=== PATIENT | female | born 1965 | race Two or more races ===

== ENCOUNTER 2020-02-14 23:35 | Inpatient (IN) | payer OTHER ==
[~2020-02-14] VITALS: Ht 157.5 cm; Wt 77.1 kg
--- NOTE | 2020-02-14 23:38 | NUR ---
COVID SWAB SENT TO LAB
[2020-02-14 23:52] LABS: BASOPHILS # (AUTO) 0.1 /CMM (0.0-0.2); HEMATOCRIT 44 % (33-45); HEMOGLOBIN 14.7 g/dL (11.5-14.8); LYMPHOCYTES # (AUTO) 3.4 /CMM (0.8-4.8); LYMPHOCYTES % (AUTO) 44.5 % (20.0-44.0); MEAN CORPUSCULAR HGB CONC 34 g/dl (31.0-36.0); MEAN CORPUSCULAR VOLUME 92 fL (82-100); MONOCYTES # (AUTO) 0.5 /CMM (0.1-1.30); NEUTROPHILS # (AUTO) 3.5 /CMM (1.8-8.9); NEUTROPHILS % (AUTO) 46.5 % (43.0-81.0); PLATELET COUNT (AUTO) 251 /CMM (150-450); RED BLOOD CELL COUNT(AUTO) 4.75 MIL/uL (4.0-5.2); WHITE BLOOD COUNT (AUTO) 7.6 K/uL (4.3-11.0)
--- NOTE | 2020-02-14 23:55 | NUR ---
URINE SENT TO LAB
--- NOTE | 2020-02-14 23:57 | NUR ---
PT AAOX4. [place] FROM [facility] ADMIT; ON 5150 FOR SI. PLACED IN BED 12 ON MONIOTOR AND PULSE OX. SITTER AT BEDSIDE. PT CALM.
[2020-02-15] LABS: CALCIUM, SERUM 9.2 mg/dL (8.5-10.1); CARBON DIOXIDE 30 mmol/L (21-32); CHLORIDE 103 mmol/L (98-107); CREATININE 1.1 mg/dL (0.6-1.3); GLUCOSE 103 mg/dL (74-106); POTASSIUM 3.6 mmol/L (3.5-5.1); SODIUM SERUM 140 mmol/L (136-145); UREA NITROGEN, BLOOD 11 mg/dL (7-18)
[2020-02-15 00:01] LABS: APPEARANCE,URINE Clear (CLEAR); BILIRUBIN,URINE Negative (NEGATIVE); BLOOD, URINE Negative Ery/uL (NEGATIVE); COLOR,URINE Yellow (YELLOW); KETONES,URINE Trace (NEGATIVE); LEUKOCYTE ESTERASE ,URINE Negative (NEGATIVE); NITRITE, URINE Negative (NEGATIVE); PH,URINE 5.5 (5.0-8.0); PROTEIN,URINE Negative (NEGATIVE); UGLUCOSE Negative (NEGATIVE)
[2020-02-15 00:05] LABS: ALANINE AMINOTRANSFERASE 23 U/L (12-78); ALBUMIN 4.1 g/dL (3.4-5.0); ALKALINE PHOSPHATASE 112 U/L (46-116); ASPARTATE AMINOTRANSFERASE 26 U/L (15-37); BILIRUBIN,DIRECT 0.1 mg/dL (0.0-0.2); BILIRUBIN,TOTAL 0.4 mg/dL (0.2-1.0); TOTAL PROTEIN, SERUM 7.4 g/dL (6.4-8.2)
[2020-02-15 00:10] LABS: ACETAMINOPHEN < 2 ug/ml (10-30); ALCOHOL, BLOOD < 3 mg/dL (0-0)
[2020-02-15 00:12] LABS: BACTERIA,URINE Rare /HPF (None Seen); RBC,URINE NONE SEEN /HPF (0-2); SQUAMOUS EPITHELIAL CELL,UR Few /HPF (None Seen); WBC,URINE NONE SEEN /HPF (0-3)
--- NOTE | 2020-02-15 01:00 | NUR ---
REPORT GIVEN TO DAVID AT [facility]
--- NOTE | 2020-02-15 01:10 | NUR ---
PT WAS TRANSFERRED TO [facility] IN STABLE CONDITION.
[2020-02-15 01:15] VITALS: BP 110/62
--- NOTE | 2020-02-15 01:20 | NUR ---
[facility] FIXTURE MAKER NOTES: ADMITTED A 55/FEMALE FROM [facility] TO [facility] TO [facility]IT, ON 5150 HOLD FOR DANGER TO SELF. PER HOLD, PATIENT IS A & O X 3, CALM, COOPERATIVE. PT. REPORTS INCREASED SUICIDAL IDEATION DUE TO LACK OF SLEEP. PT. OVERDOSED ON HER ATIVAN 12-15 PILLS ON 02/11/2020. PT. STATED," I CAN'T SAY IF I CAN KEEP MYSELF SAFE IF I GO HOME TODAY. I DON'T KNOW WHAT TO TELL YOU." PT. HAS LIMITED SUPPORT SYSTEM & STATED," ALL I DO IS STAY IN MY ROOM, ALL I DO IS BREATH, THAT'S IT." PATIENT IS UNABLE TO CONTRACT FOR HER SAFETY AT THIS TIME. PATIENT WILL BE UNDER THE CARE OF DR. JOHNSON AND DR. MORA FOR PSYCH AND MEDICAL DOCTORS RESPECTIVELY. PATIENT WAS BROUGHT INTO THE UNIT VIA GURNEY. UPON FACE TO FACE ASSESSMENT, PATIENT IS A & O X 3, CALM, COOPERATIVE, QUIET, DEPRESSED, DISORGANIZED, DISHEVELED, SAD. ABLE TO MAKE HER NEEDS KNOWN. DURING INTERVIEW, PATIENT STATED," I AM FEELING SAD," BUT REFUSED TO VERBALIZE THE REASON. DENIED SI/HI/AVH AT THIS TIME & DENIED OF HAVING ANY PLAN OR THOUGHTS TO HURT/KILL HERSELF. NO BEHAVIOR EPISODE NOTED. APPEARS UNKEMPT, PATIENT'S BELONGINGS AND CONTRABAND WERE CHECKED. SKIN AND BODY ASSESSMENT CHECKED, PHOTOS TAKEN AND PLACED IN THE CHART. AMBULATORY, STAEDY, CONTINENT OF B & BM, Q15 MIN CHECKS STARTED. CARE PLAN INITIATED. PROVIDED PATIENT WITH PATIENT'S RIGHTS HANDBOOK AND THE GUIDE TO PRESCRIPTION MEDICATIONS. MEDS ENTERED FOR MED RECON. PATIENT THEN CHANGED TO CLEAN GOWN. VITAL SIGNS TAKEN AND RECORDED. ENVIRONMENTAL SAFETY CHECKS DONE. SAFETY MEASURES IN PLACE. BED IN LOW LOCKED POSITION. WILL CONTINUE TO MONITOR Q 15 MIN FOR SAFETY, MOOD & BEHAVIOR.
[2020-02-15] MEDS ORDERED: ACETAMINOPHEN 325 MG TABLET PO PRN (01:30)
[2020-02-15] MEDS ORDERED: MAGNESIUM HYDROXIDE 30 ML UDC PO PRN (01:30)
[2020-02-15] MEDS ORDERED: BLOOD SUGAR DIAGNOSTIC 1 EACH STRIP IN ONE (01:30)
[2020-02-15] MEDS ORDERED: MAG HYDROX/AL HYDROX/SIMETH 30 ML UDC PO PRN (01:30)
[2020-02-15] MEDS ORDERED: FLUO10CA26 PO (01:49)
[2020-02-15] MEDS ORDERED: ESCI20TA PO (01:49)
[2020-02-15] MEDS ORDERED: BUPR150T5 PO (01:49)
[2020-02-15] MEDS ORDERED: LORA-259 PO (01:49)
[2020-02-15] MEDS ORDERED: TEMAZEPAM 7.5 MG CAPSULE PO PRN (02:30)
--- NOTE | 2020-02-15 02:36 | NUR ---
[facility] RN NOTE: INSOMNIA PATIENT VERBALIZED THAT SHE IS UNABLE TO SLEEP & REQUESTED TO GET SLEEPING MEDICINE. PRN RESTORIL 7.5 MG 1 CAP PO GIVEN. WILL CONTINUE TO MONITOR CLOSELY FOR ANY CHANGES.
--- NOTE | 2020-02-15 03:47 | NUR ---
[facility] RN NOTE PATIENT IS SLEEPING COMFORTABLY AT THIS TIME. NO BEHAVIOR EPISODES NOTED.
--- NOTE | 2020-02-15 06:43 | NUR ---
[facility] RN NOTE CALLED JUAN (DAUGHTER) AT [phone] & INFORMED HER ABOUT NAOMI ARGUELLES'S ADMISSION AT [facility] UNIT & DAUGHTER IS ZEKE.
[2020-02-15 08:00] VITALS: BP 109/56
--- NOTE | 2020-02-15 14:05 | NUR ---
Family Contact: SW called the pts daughter, Lia ([phone]), and discussed the pts treatment and initial discharge plan. Pts daughter stated that she would want the pt to live with her post discharge.
--- NOTE | 2020-02-15 14:27 | NUR ---
Initial Discharge Plan: Pt currently resides with her family located at [address] [place] [address]; ([phone]). Per pt, she would like to go home but not until she is stable. SW will work with the pt and the MD regarding appropriate discharge planning. SW will form a safe and proper discharge.
--- NOTE | 2020-02-15 14:51 | NUR ---
Substance Abuse Intervention: SW conducted a substance abuse intervention with the pt due to her overdose on Ativan.
--- NOTE | 2020-02-15 14:57 | NUR ---
Family Contact: JULIAN called the pts daughter, Lia ([phone]), and informed her that the pt agreed to be placed in her daughter's home after being discharged from the hospital. JULIAN stated that she will keep her updated.
[2020-02-15 16:00] VITALS: BP 100/61
[2020-02-15] MEDS: FLUOXETINE HCL 20 MG CAPSULE PO SCH (18:25)
[2020-02-15 20:18] VITALS: BP 102/55
[2020-02-15 23:31] VITALS: BP 111/60
[2020-02-15] MEDS: LORAZEPAM 0.5 MG TABLET PO PRN (23:33)
--- NOTE | 2020-02-15 23:34 | NUR ---
[facility] RN NOTES: ANXIOUS PT C/O OF FEELING ANXIOUS. PA REQUESTED ATIVAN. VITALS TAKEN WNL. NO SOB. NO RESP DISTRESS. OFFERED ATIVAN 0.5MG PO PRN ORDERED. PT AGREED AND TOLERATED MEDICATION WELL. CONTINUE TO MONITOR.
[2020-02-16 08:00] VITALS: BP 100/52
[2020-02-16 08:04] LABS: CHOLESTEROL 190 mg/dL (<200); HDL CHOLESTEROL 59 mg/dL (40-60); LDL 105 mg/dL (0-99); TRIGLYCERIDES 153 mg/dL (30-150)
[2020-02-16] MEDS: FLUOXETINE HCL 20 MG CAPSULE PO SCH (08:14)
[2020-02-16] MEDS: BUPROPION XL 150 MG TAB.ER.24 PO SCH (08:14)
[2020-02-16] MEDS: ASPIRIN/ACETAMINOPHEN/CAFFEINE 1 EACH TABLET PO PRN (12:10)
--- NOTE | 2020-02-16 14:58 | NUR ---
Pt. signed the voluntary admission.
[2020-02-16 16:00] VITALS: BP 102/58
[2020-02-16 20:18] VITALS: BP 121/65
[2020-02-16] MEDS: LORAZEPAM 0.5 MG TABLET PO PRN (22:50)
--- NOTE | 2020-02-16 22:50 | NUR ---
[facility]-RN NOTE: ANXIETY PATIENT C/O FEELING ANXIOUS. ADMINISTERED ATIVAN 0.5MG PO ORDERED. WILL CONTINUE TO MONITOR FOR PATIENT'S SAFETY.
[2020-02-17 08:00] VITALS: BP 103/70
[2020-02-17] MEDS: FLUOXETINE HCL 20 MG CAPSULE PO SCH (08:37)
[2020-02-17] MEDS: BUPROPION XL 150 MG TAB.ER.24 PO SCH (08:37)
[2020-02-17 16:00] VITALS: BP 123/79
[2020-02-17 20:08] VITALS: BP 117/52
[2020-02-17] MEDS: LORAZEPAM 0.5 MG TABLET PO PRN (21:37)
[2020-02-17 22:00] VITALS: BP 115/65
--- NOTE | 2020-02-18 06:50 | NUR ---
[facility] RN NOTES: PT. RESTING HER ROOM, CALM NOTED AT THIS TIME . NO S/S OF DISTRESS NOTED . NO CHANGE OF CONDITION NOTED, ALL CARE NEEDS MET ANTICIPATED. WILL CONTINUE TO MONITOR FOR SAFETY BEHAVIOR, AND ENDORSE TO AM SHIFT FOR CONTINUITY OF CARE.
[2020-02-18 08:00] VITALS: BP 103/64
[2020-02-18] MEDS: ASPIRIN/ACETAMINOPHEN/CAFFEINE 1 EACH TABLET PO PRN (08:31)
--- NOTE | 2020-02-18 08:31 | NUR ---
given excedrin for headache.
[2020-02-18] MEDS: FLUOXETINE HCL 20 MG CAPSULE PO SCH (09:18)
[2020-02-18] MEDS: BUPROPION XL 150 MG TAB.ER.24 PO SCH (09:18)
--- NOTE | 2020-02-18 12:30 | NUR ---
talking about being discharged today.here on volunteer basis.instructed to talk with smelter charger
[2020-02-18 16:00] VITALS: BP 122/57
[2020-02-18 20:28] VITALS: BP 125/72
[2020-02-18] MEDS: LORAZEPAM 0.5 MG TABLET PO PRN (21:00)
--- NOTE | 2020-02-18 21:00 | NUR ---
RN NOTES: ANXIETY PATIENT C/O FEELING ANXIOUS. ADMINISTERED ATIVAN 0.5MG PO ORDERED AND PER PT. REQUEST. WILL CONTINUE TO MONITOR FOR PATIENT'S SAFETY AND BEHAVIOR.
--- NOTE | 2020-02-19 07:01 | NUR ---
[facility] RN NOTES: PT. RESTING HER ROOM, CALM NOTED AT THIS TIME . NO S/S OF DISTRESS NOTED . NO CHANGE OF CONDITION NOTED, NO BEHAVIOR PROBLEMS NOTED, ALL CARE NEEDS MET ANTICIPATED. WILL CONTINUE TO MONITOR FOR SAFETY BEHAVIOR, AND ENDORSE TO AM SHIFT FOR CONTINUITY OF CARE.
[2020-02-19 08:00] VITALS: BP 110/65
[2020-02-19] MEDS: BUPROPION XL 150 MG TAB.ER.24 PO SCH (08:07)
[2020-02-19] MEDS: FLUOXETINE HCL 20 MG CAPSULE PO SCH (08:07)
[2020-02-19 16:00] VITALS: BP 105/60
--- NOTE | 2020-02-19 17:47 | NUR ---
RN-CO: Guero refused MOM for constipation. She said I will just wait until I got home. "That is my normal."
[2020-02-19 19:43] VITALS: BP 121/71
[2020-02-19] MEDS: LORAZEPAM 0.5 MG TABLET PO PRN (20:33)
--- NOTE | 2020-02-19 20:34 | NUR ---
RN NOTES: ANXIETY PATIENT C/O FEELING ANXIOUS. ADMINISTERED ATIVAN 0.5MG PO ORDERED AND PER PT. REQUEST. WILL CONTINUE TO MONITOR FOR PATIENT'S SAFETY AND BEHAVIOR.
--- NOTE | 2020-02-20 07:24 | NUR ---
[facility] RN NOTES PATIENT IN THE ROOM, AWAKE, HAVING BREAKFAST. PATIENT IS CALM AT THIS TIME AND PLEASANT; NO S/S OF DISTRESS NOTED. WILL CONTINUE TO MONITOR FOR SAFETY BEHAVIOR.
[2020-02-20 08:00] VITALS: BP 105/74
[2020-02-20] MEDS: FLUOXETINE HCL 20 MG CAPSULE PO SCH (08:15)
[2020-02-20] MEDS: BUPROPION XL 150 MG TAB.ER.24 PO SCH (08:18)
--- NOTE | 2020-02-20 11:02 | NUR ---
SW Family Contact: This magnetic tape typewriter operator spoke with patients daughter Lia ([phone]) will sisal picker patient at 3PM. This magnetic tape typewriter operator discussed patient's treatment plan as well.
--- NOTE | 2020-02-20 11:48 | NUR ---
Coordination of Care: Patient will follow up with (Manager Cath Lab) Dr. Vallejo located at [address] [place] [address]; ([phone]) and spoke with Beth officer of the day who scheduled for 02/22 at 2:30PM and faxed [phone]) clinicals. Patient will follow up with (Psychiatrist) Dr. Darrell Adams located at [facility] located at [address] [place] [address]; ([phone]) on February 21 at 10:30AM and apt was made by Allison delivery mgr.
--- NOTE | 2020-02-20 11:49 | NUR ---
SW Discharge Note: Patient will be discharged back home at [address] [facility], [address]; ([phone]). Patients daughter Lia ([phone]) will picker machine operator patient at 3PM. Patients daughter Lia ([phone]) is aware and agreeable. Upon discharge, patient appears to be calm, cooperative and happy to be going home. Patient denies suicidal and homicidal ideation. Patient denies auditory/visual hallucinations. Patient will follow up with (psychiatrist) Dr. Adams located at [facility] located at [address] [place] [address]; ([phone]) on February 21 at 10:30AM.) and will follow up with (turning sander operator) Dr. Vallejo located at [address] [place] [address]; ([phone]) on February 22 at 2:30PM. Patient was provided referrals to the following substance abuse programs: [facility]stance [facility] Self-[facility]pl[facility] ([phone]); [facility] [address] [place] [address] ([phone]); [address] [address] ([phone]); [facility] ([phone]); [facility] ([phone]); [facility] ([phone]); [facility] ([phone]). Patient presented with euthymic and congruent mood.
[2020-02-20] MEDS: ASPIRIN/ACETAMINOPHEN/CAFFEINE 1 EACH TABLET PO PRN (12:28)
--- NOTE | 2020-02-20 12:28 | NUR ---
[facility] RN NOTES PATIENT COMPLAINING OF HEADACHE. PRN PAIN MEDICATION GIVEN. WILL CONTINUE TO MONITOR.
--- NOTE | 2020-02-20 15:14 | NUR ---
[facility] SIMONIZER NOTES PATIENT DISCHARGED HOME IN MEDICALLY STABLE CONDITION. UPON DISCHARGE PATIENT APPEARS CALM, COOPERATIVE AND HAPPY TO GO HOME. PATIENT DENIES SUICIDAL IDEATIONS, HOMICIDAL IDEATIONS AND ALSO AUDITORY AND VISUAL HALLUCINATIONS. ALL DISCHARGE PAPERWORK HAS BEEN DONE AND SIGNED BY PATIENT. TEACHING REGARDING NEWLY PRESCRIBED MEDS PROVIDED; PATIENT VERBALIZED UNDERSTANDING. PATIENT WILL HAVE TO FOLLOW UP WITH PSYCHIATRIST DR. BRANHAM; PATIENT AWARE AND SAID WILL COMPLY WITH THE ORDER. BELONGINGS AND VALUABLES ACCOUNTED FOR AND PATIENT SIGNED THE VALUABLE FORM. PATIENT LEFT THE UNIT AT 1512 ACCOMPANIED BY RN. WAS MED OUTSIDE BY THE DAUGHTER WHO PICKED UP THE PATIENT IN A PRIVATE CAR.
== END 2020-02-20 15:10 | disposition home or self-care (01) | DRG 885 ==
LOC: ER 23:37 → GPS 23:55
PROVIDERS: ADMIT Psychiatry & Neurology Psychiatry; ATTEND Nurse Practitioner Acute Care
DX: F33.2 Major depressive disorder, recurrent severe without psychotic features (principal); N18.9 Chronic kidney disease, unspecified; F23 Brief psychotic disorder; E78.5 Hyperlipidemia, unspecified; R73.9 Hyperglycemia, unspecified; Z85.841 Personal history of malignant neoplasm of brain
CPT/HCPCS: 36415; 80048-TC; 80061-TC; 80076-TC; 80305; 81000-TC; 82565-TC; 82962-TC; 85025-TC; 87081-TC; G0480